=== PATIENT | female | born 1975 | race Caucasian/White ===

== ENCOUNTER 2017-02-09 12:25 | Emergency (ER) | payer MEDICAID ==
[~2017-02-09] VITALS: Ht 170.2 cm; Wt 127.7 kg
[~2017-02-09 12:25] MED LIST: ALBU8.5H5 INH; AMOX125T PO; CHOL2000 PO; MONT4GRA PO; PANT20TA2 PO
[2017-02-09 12:27] VITALS: BP 132/86
== END 2017-02-09 13:49 | disposition home or self-care (01) ==
LOC: ED 13:30
DX: B96.89 Other specified bacterial agents as the cause of diseases classified elsewhere (principal); J20.8 Acute bronchitis due to other specified organisms; J01.00 Acute maxillary sinusitis, unspecified; J45.909 Unspecified asthma, uncomplicated; F17.210 Nicotine dependence, cigarettes, uncomplicated
CPT/HCPCS: 99283

== ENCOUNTER 2018-11-16 15:55 | Emergency (ER) | payer MEDICAID, OTHER ==
[~2018-11-16] VITALS: Ht 167.6 cm; Wt 100.6 kg
[2018-11-16 16:03] VITALS: BP 112/94
== END 2018-11-16 17:06 | disposition home or self-care (01) ==
LOC: ED 17:00
DX: J30.2 Other seasonal allergic rhinitis (principal); K21.9 Gastro-esophageal reflux disease without esophagitis
CPT/HCPCS: 99282

== ENCOUNTER 2019-12-11 16:57 | Emergency (ER) | payer MEDICAID ==
[~2019-12-11] VITALS: Ht 167.6 cm; Wt 97.7 kg
[2019-12-11 17:01] VITALS: BP 141/83
--- NOTE | 2019-12-11 18:57 | NUR ---
REPORT TO CL [facility]
--- NOTE | 2019-12-11 18:58 | NUR ---
sagar wrap applied per order by used car make ready mechanic. awaiting d/c papers.
--- NOTE | 2019-12-11 19:13 | NUR ---
SARIAK LAGUERRE IN TO DISCUSS D/C PLAN WITH PT. ICE CHIPS PROVIDED PER REQUEST.
== END 2019-12-11 19:29 | disposition home or self-care (01) ==
LOC: ED 19:23
DX: S90.32XA Contusion of left foot, initial encounter (principal); K21.9 Gastro-esophageal reflux disease without esophagitis; J45.909 Unspecified asthma, uncomplicated; F17.200 Nicotine dependence, unspecified, uncomplicated; X58.XXXA Exposure to other specified factors, initial encounter; Y93.89 Activity, other specified; Y92.89 Other specified places as the place of occurrence of the external cause; Y99.8 Other external cause status
CPT/HCPCS: 99283

== ENCOUNTER 2020-03-11 03:51 | Emergency (ER) | payer MEDICAID ==
[~2020-03-11] VITALS: Ht 167.6 cm; Wt 93.0 kg
--- NOTE | 2020-03-11 04:23 | NUR ---
DR LOZANO AT BEDSIDE FOR ASSESSMENT AND COVID SWAB AND STREP SWAB. BOTH OF WHICH WALKED TO LAB. PT DESIREE UPDATED AT REQUEST OF PT.
[2020-03-11] MEDS ORDERED: DEXAMETHASONE 4 MG TABLET PO ONE (04:30)
[2020-03-11] MEDS ORDERED: IBUPROFEN 600 MG TABLET PO ONE (04:30)
[2020-03-11] MEDS ORDERED: METOCLOPRAMIDE 10MG TABLET PO ONE (04:30)
[2020-03-11] MEDS ORDERED: DEXAMETHASONE 4 MG TABLET ONE (04:50)
[2020-03-11] MEDS ORDERED: METOCLOPRAMIDE 10MG TABLET ONE (04:50)
[2020-03-11] MEDS ORDERED: IBUPROFEN 600 MG TABLET ONE (04:50)
[2020-03-11 04:55] VITALS: BP 152/81
--- NOTE | 2020-03-11 04:56 | NUR ---
Patient/Caregiver given discharge instructions and they have confirmed that they understand the instructions. Patient ambulatory with steady gait.
== END 2020-03-11 04:57 | disposition home or self-care (01) ==
LOC: ED 04:51
DX: J04.0 Acute laryngitis (principal); Z20.828 Contact with and (suspected) exposure to other viral communicable diseases; J02.8 Acute pharyngitis due to other specified organisms; B34.9 Viral infection, unspecified; K21.9 Gastro-esophageal reflux disease without esophagitis; J45.909 Unspecified asthma, uncomplicated; G43.909 Migraine, unspecified, not intractable, without status migrainosus; F17.210 Nicotine dependence, cigarettes, uncomplicated; Z90.89 Acquired absence of other organs; Z98.51 Tubal ligation status
CPT/HCPCS: 71045; 87081; 87635; 87880; 99284; 99406